=== PATIENT | male | born 1950 | race Two or more races ===

== ENCOUNTER 2019-12-05 23:15 | Emergency (ER) | payer OTHER ==
[~2019-12-05] VITALS: Ht 180.3 cm; Wt 95.3 kg
[2019-12-06 00:30] LABS: Basophils # (auto) 0 10 ^3/uL (0-0.2); Basophils % (auto) 0.3 % (0.0-2.0); Eosinophils # (auto) 0 10 ^3/uL (0-0.8); Eosinophils % (auto) 0.2 % (0.0-7.0); Hematocrit 41.8 % (41.0-53.0); Hemoglobin 14.2 g/dL (13.5-17.5); Lymphocytes # (auto) 1.2 10 ^3/uL (0.4-5.4); Lymphocytes % (auto) 8.4 % (10.0-50.0); Mean Corpuscular Hemoglobin 32.2 pg (28.0-32.0); Mean Corpuscular Hgb Conc. 33.9 g/dL (32.0-36.0); Mean Corpuscular Volume 94.8 fL (80.0-100.0); Monocytes # (auto) 0.9 10 ^3/uL (0-1.3); Monocytes % (auto) 6.4 % (0.0-12.0); Neutrophils # (auto) 12.4 10 ^3/uL (1.6-8.6); Neutrophils % (auto) 84.7 % (37.0-80.0); Nucleated Red Blood Cells % 0.1 %; Platelet Count (auto) 202 10^3/uL (140-450); Red Blood Cells 4.41 10^6/uL (4.5-5.90); Red Cell Distribution Width 13.6 % (11.8-14.3); White Blood Cell 14.6 10^3/uL (4.4-10.8)
[2019-12-06] MEDS ORDERED: IBUPROFEN 800 MG TAB PO ONE (00:30)
[2019-12-06 00:49] LABS: Albumin 3.4 g/dL (3.4-5.0); Anion Gap 7 (5-15); Blood Urea Nitrogen 20 mg/dL (7-18); Calcium 8.7 mg/dL (8.5-10.1); Carbon Dioxide 24 mmol/L (21-32); Chloride 107 mmol/L (98-107); Glucose 157 mg/dL (74-106); Magnesium 2.4 mg/dL (1.6-2.6); Potassium 3.9 mmol/L (3.5-5.1); Sodium 138 mmol/L (136-145)
[2019-12-06 00:50] LABS: Alanine Aminotransferase 23 U/L (16-61); Aspartate Aminotransferase 15 U/L (15-37); BUN/Creatinine Ratio 11.8; GFR African American 52 mL/min; GFR Non-African American 43 mL/min
[2019-12-06 00:58] LABS: Alkaline Phosphatase 57 U/L (45-117); Bilirubin, Total 0.9 mg/dL (0.2-1.0); Total Protein 7.3 g/dL (6.4-8.2)
[2019-12-06 01:11] LABS: INR 1.03 (0.9-1.15)
[2019-12-06 01:22] LABS: Hematocrit 40.8 % (41.0-53.0); Hemoglobin 13.9 g/dL (13.5-17.5)
[2019-12-06] MEDS ORDERED: fentaNYL CITRATE 100 MCG/2 ML VL IV ONE ×2 (01:30→03:00)
[2019-12-06 01:54] LABS: Lactic Acid w/Reflex 2.5 mmol/L (0.4-2.0)
[2019-12-06] MEDS ORDERED: fentaNYL CITRATE 100 MCG/2 ML VL IM ONE (02:00)
[2019-12-06] MEDS ORDERED: ESMOLOL HCL-NS 10MG/ML 250 ML IV SCH (02:15)
[2019-12-06] MEDS ORDERED: IOHEXOL 350 MG/ML 100ML IJ ONE (02:16)
[2019-12-06] MEDS ORDERED: NOREPINEPHRINE 8 MG/250ML KIT 250 ML IV ONE (03:11)
[2019-12-06 03:15] VITALS: BP 76/40
[2019-12-06] MEDS ORDERED: NOREPINEPHRINE 8 MG/250ML KIT 250 ML IV SCH (03:15)
[2019-12-06] MEDS: fentaNYL CITRATE 100 MCG/2 ML VL IV ONE ×2 (03:28→03:37)
== END 2019-12-06 03:43 | disposition short-term general hospital (02) ==
LOC: ER 23:15 → EDBD 23:15 → ER 12-06 03:43
DX: I71.3 Abdominal aortic aneurysm, ruptured (principal); F10.20 Alcohol dependence, uncomplicated; I95.9 Hypotension, unspecified; R42 Dizziness and giddiness; Y90.9 Presence of alcohol in blood, level not specified
CPT/HCPCS: 36415; 71046; 72131; 74177; 80053; 82962; 83605; 83735; 84484; 85014; 85018; 85025; 85610; 85730; 86850; 86900; 86901; 87040; 93005; 96374; 96376; 99291; 99292; J3010; Q9967

== ENCOUNTER 2022-03-12 16:36 | Emergency (ER) | payer OTHER ==
[~2022-03-12] VITALS: Ht 167.6 cm; Wt 84.0 kg
[2022-03-12 17:00] VITALS: BP 141/75
== END 2022-03-12 20:53 | disposition left against medical advice (07) ==
LOC: ER 16:38
DX: U07.1 COVID-19 (principal); I10 Essential (primary) hypertension; R22.42 Localized swelling, mass and lump, left lower limb; Z95.1 Presence of aortocoronary bypass graft; Z87.891 Personal history of nicotine dependence
CPT/HCPCS: 71046; 93971